=== PATIENT | female | born 2000 | race Caucasian/White ===

== ENCOUNTER 2022-06-12 02:30 | Emergency (ER) | payer SELFPAY ==
[2022-06-12 02:31] VITALS: BP 140/96; PULSE 116; RESP 16; TEMP 36.3; O2SAT 99; BMI 24.4
--- NOTE | 2022-06-12 02:36 | EDS_ITS ---
HPI History of Present Illness Chief Complaint: Suicidal Narrative Narrative: 21-year-old female here for suicidal ideation. Patient states she is tired of living a mundane life. She further states she has been thinking about it since 14 in reference to suicide. Patient notes she is drink alcohol tonight. No she is a plan to slit her wrist. Patient further states she was drinking tonight felt suicidal prior to drinking. States as she was drinking she felt more suicidal. States her ex-boyfriend called police to get her evaluated. Per police patient was found locked in her bathroom razor blades next to her. Police state patient endorsed suicidal ideations with a plan to kill herself by using razor blades. [facility] Home Medications NK 02/19/17 [History Last Taken Unknown] Allergy/AdvReac Type Severity Reaction Status Date / Time No Known Allergies Allergy Verified 06/12/22 02:39 Social History Smoking Status: Never smoker ROS ROS ED ROS Narrative Constitutional: Denies fever HEENT: Denies sore throat Neck: Denies neck pain Cardiovascular: Denies chest pain, syncope Respiratory: Denies shortness of breath GI: Denies nausea vomiting or abdominal pain : Denies changes in urinary habits Musculoskeletal: Denies muscle or joint pain Neurologic: Denies numbness weakness or loss of sensation Skin denies rash Psych: Endorses SI, denies auditory, visual hallucinations, denies homicidal ideation EXAM Physical Exam Narrative Exam Narrative: Nursing triage notes reviewed, Vital signs reviewed Constitutional: please see mdm HENT: MMM Eyes: Pupils equal round and reactive to light, Extraocular muscles intact Neck: No stridor, no JVD, full neck ROM Lungs: Clear to auscultation, No wheezing or rales. No increased work of breathing, no conversational dyspnea, no accessory muscle use, no nasal flaring. No respiratory distress noted Heart: Regular rate and rhythm, No murmurs, No rubs and No gallops, 2+ distal pulses (radial, femoral, posterior tibial) in all extremities Abdomen: Soft, there is no tenderness, rigidity, rebound or guarding, no obvious peritoneal signs, no palpable pulsatile abdominal masses, no auscultated abdominal bruit : No CVAT Extremities: No edema Neuro: No focal neurological deficits, cranial nerves II through XII intact, 5/5 strength in all extremities. Intact sensation to light touch in all extremities, 2+ reflexes bilateral patella dens. Normal gait. No ataxia. Skin: No rash or lesions noted Psych: Goal-directed thought process, intact insight, not responding to internal stimuli Const Vital Signs: 06/12/22 02:31 06/12/22 05:33 06/12/22 06:46 Temperature 97.4 F L Temperature Source Temporal Pulse Rate 116 H 68 99 Respiratory Rate 16 15 16 Blood Pressure 140/96 H 134/71 H 113/69 Blood Pressure Mean 110 92 83 Pulse Ox 99 99 99 Oxygen Delivery Method Room Air Room Air Room Air MDM MDM MDM Narrative Medical decision making narrative: Chief Complaint: Suicidal ideation External records reviewed: Evaluated for suicidal ideation 2017. At that time she was evaluated by crisis and discharged in the care of her father with a diagnosis of oppositional defiant disorder MDM: Patient was initially tachycardic, hemodynamically stable, afebrile nontoxic-appearing. No physical exam findings. No physical complaints at this time. I considered the following differential diagnosis: SI, alcohol intoxication Given patient's report of wanting to end her life. Patient was pink slipped by police pink slipped the patient. She was institutionalized, closed and possessions removed. Obtained medical clearance labs including urine drug screen and serum alcohol as well as COVID and test. Initial EKG without evidence of arrhythmia or STEMI. Remainder of labs showed evidence of alcohol intoxication otherwise no life limiting etiologies could be identified. The patient was medically cleared pending clinical lab sobriety. We will obtain a repeat alcohol level approximately 5 hours after initial alcohol level was drawn approximately 9 AM in the morning. At this time the patient is still suicidal we will have our behavioral health colleagues evaluate the patient for appropriateness for psychiatric admission. Patient signed out to a.m. physician pending repeat alcohol level and reevaluation of her suicidality. Factors affecting care: History of suicidal ideation Social determinants of health: Alcohol ingestion History obtained from others: EMS, police Shared decision making: I will have a discussion with the patient and or visitors regarding risk/benefits of further testing or admission. They will be made aware of of the risk/benefits inherent in this decision they will be given the opportunity to voice understanding. Consults: Behavioral health Lab Data Attestation: I reviewed the patient's lab results. Lab results narrative: EKG with sinus tachycardia, normal axis, normal intervals, no STEMI CBC without leukocytosis, severe anemia, no thrombocytopenia. BMP without evidence of significant electrolyte abnormalities, no anion gap, no acute kidney injury. Urine drug screen negative Serum negative COVID-negative Serum alcohol 215 consistent with acute alcohol intoxication Labs: Laboratory Results - last 24 hr 06/12/22 06/12/22 06/12/22 02:45 03:30 03:30 WBC 4.8 RBC 4.26 Hgb 13.5 Hct 40.6 MCV 95.3 MCH 31.7 MCHC 33.3 RDW Std Deviation 43.1 RDW Coeff of Naren 12.3 Plt Count 263 MPV 10.3 Immature Gran % (Auto) 0.200 Neut % (Auto) 55.6 Lymph % (Auto) 34.4 [place] % (Auto) 7.5 Eos % (Auto) 1.7 Baso % (Auto) 0.6 Absolute Neuts (auto) 2.7 Absolute Lymphs (auto) 1.66 Nucleated RBC % 0 Sodium 143 Potassium 3.8 Chloride 111 H Carbon Dioxide 22.0 Anion Gap 10 BUN 8 Creatinine 0.87 Estim Creat Clear Calc 99.47 Est GFR (MDRD) Af Amer 105 Est GFR (MDRD) Non-Af 87 BUN/Creatinine Ratio 9.2 L Glucose 106 Calcium 9.3 Serum , Qual Urine Opiates Screen NEGATIVE Urine Methadone Screen NEGATIVE Ur Barbiturates Screen NEGATIVE Ur Phencyclidine Scrn NEGATIVE Ur Amphetamines Screen NEGATIVE MDMA (Ecstasy) Screen NEGATIVE U Benzodiazepines Scrn NEGATIVE Urine Cocaine Screen NEGATIVE U Cannabinoids Screen NEGATIVE Ur Drug Screen Comment Ethyl Alcohol 06/12/22 06/12/22 03:30 03:30 WBC RBC Hgb Hct MCV MCH MCHC RDW Std Deviation RDW Coeff of Naren Plt Count MPV Immature Gran % (Auto) Neut % (Auto) Lymph % (Auto) [place] % (Auto) Eos % (Auto) Baso % (Auto) Absolute Neuts (auto) Absolute Lymphs (auto) Nucleated RBC % Sodium Potassium Chloride Carbon Dioxide Anion Gap BUN Creatinine Estim Creat Clear Calc Est GFR (MDRD) Af Amer Est GFR (MDRD) Non-Af BUN/Creatinine Ratio Glucose Calcium Serum , Qual NEGATIVE Urine Opiates Screen Urine Methadone Screen Ur Barbiturates Screen Ur Phencyclidine Scrn Ur Amphetamines Screen MDMA (Ecstasy) Screen U Benzodiazepines Scrn Urine Cocaine Screen U Cannabinoids Screen Ur Drug Screen Comment Ethyl Alcohol 215.0 Discharge Plan Triage Chief Complaint: Suicidal ED Provider: Johan Edmonds Dx/Rx/DC Orders Clinical Impression: Suicide ideation, Alcohol intoxication Prescriptions: No Action NK Primary Care Provider: Care Physician,No Primary Referrals: Care Physician,No Primary [Primary Care Provider] -
[2022-06-12 03:41] LABS: Amphetamine Urine VISTA NEGATIVE (<1000 ng/mL); Barbiturate Urine VISTA NEGATIVE (< 200 ng/mL); Benzodiazepine Urine VISTA NEGATIVE (< 200 ng/mL); Cocaine Urine VISTA NEGATIVE (< 300 ng/mL); Ecstacy Urine VISTA NEGATIVE (< 500 ng/mL); Methadone Urine VISTA NEGATIVE (< 300 ng/mL); PCP Urine VISTA NEGATIVE (< 25 ng/mL); THC Urine VISTA NEGATIVE (< 50 ng/mL); Vista UDS pH Range 4
[2022-06-12 03:43] LABS: Absolute Lymphocyte Count 1.66 X10^3/uL (0.83-4.51); Absolute Neutrophil Count 2.7 X10^3/uL (2.0-7.7); Basophil# 0.03 X10^3/uL; Basophil% 0.6 % (0-1); Eosinophil# 0.08 X10^3/uL; Eosinophils% 1.7 % (0-5); Hematocrit 40.6 % (37-47); Hemoglobin 13.5 g/dL (12.0-15.0); Lymphocyte # 1.66 X10^3/ul (0.83-4.51); Lymphocyte % 34.4 % (19-41); Mean Corp Hgb Conc 33.3 g/dL (32-36); Mean Corpuscular Hgb 31.7 pg (27.0-32.0); Mean Corpuscular Volume 95.3 fL (81-99); Mean Platelet Vol. 10.3 fl (6.2-12.0); Monocyte# 0.36 X10^3/uL; Monocyte% 7.5 % (0-10); NRBC Flagged by Analyzer 0 % (0-5); Neutrophil # 2.69 X10^3/uL (2.7-7.7); Neutrophil % 55.6 % (47-70); Platelet Count 263 K/mm3 (150-450); RBC Distribution Width CV 12.3 % (11.6-14.6); RBC Distribution Width SD 43.1 fl (35.1-43.9); Red Blood Count 4.26 M/mm3 (4.2-5.4); White Blood Count 4.8 K/mm3 (4.4-11.0)
[2022-06-12 04:00] LABS: Anion Gap 10 (5-15); BUN 8 mg/dL (7-18); BUN/Creat Ratio 9.2 RATIO (10-20); Calcium,Total 9.3 mg/dL (8.5-10.1); Chloride 111 mmol/L (98-107); Creatinine, Serum 0.87 mg/dL (0.55-1.02); EST Glomerular Filtration Rate 87 mL/min (>60); Est Glom Filt Rate - Afr Amer 105 mL/min (>60); Estimated Creatinine Clearance 99.47 ml/min; Glucose 106 mg/dL (74-106); Potassium 3.8 mmol/L (3.5-5.1); Sodium Level 143 mmol/L (136-145)
[2022-06-12 04:28] LABS: Internal QC Validated? YES +Cl - CLEAR BKGD; Pregnancy, Serum, hCG Quali. NEGATIVE Negative
[2022-06-12 05:33] VITALS: BP 134/71; PULSE 68; RESP 15; O2SAT 99
[2022-06-12 06:46] VITALS: BP 113/69; PULSE 99; RESP 16; O2SAT 99
[2022-06-12 10:00] VITALS: BP 116/78; PULSE 72; RESP 16; O2SAT 98
--- NOTE | 2022-06-12 11:13 | NURSING ---
CALLED [facility] ANSWERING SERVICE ABOUT PATIENT
--- NOTE | 2022-06-12 11:16 | NURSING ---
FAXED CHART TO CRISIS
--- NOTE | 2022-06-12 11:42 | NURSING ---
PRICILA JEAN, CALLED BACK. SHE IS WAITING ON THE FAX TO COME THROUGH
[2022-06-12 13:10] VITALS: PULSE 72; RESP 16; O2SAT 99
--- NOTE | 2022-06-12 13:16 | NURSING ---
IRINA, [facility], CALLED. SHE IS ON HER WAY OVER TO SEE PATIENT
== END 2022-06-12 15:33 | disposition home or self-care (01) ==
PROVIDERS: Emergency Provider Emergency Medicine; Visit Provider Emergency Medicine
DX: R45.851 Suicidal ideations (principal); F10.129 Alcohol abuse with intoxication, unspecified
CPT/HCPCS: 36415; 80048; 80307; 82077; 84703; 85025; 87811; 93005; 99285; A4216

== ENCOUNTER 2024-04-24 10:18 | Emergency (ER) | payer OTHER, SELFPAY ==
[2024-04-24 10:19] VITALS: BP 148/97; PULSE 96; RESP 15; TEMP 36.8; O2SAT 100
--- NOTE | 2024-04-24 11:18 | EDS_ITS ---
HPI History of Present Illness Chief Complaint: Laceration Narrative Narrative: Chief complaint and HPI: Left middle finger injury/laceration. 23-year-old female was injured at work when a metal crushed/lacerated her left middle finger. Her nail was ripped off. Has a nail bed injury. Not up-to-date on tetanus. Denies blood thinners. Denies numbness or tingling. Denies injury elsewhere. Review of systems: See HPI Medications: As listed on the chart Allergies: As listed on the chart PFSH: Per chart Vital signs: As listed on the chart. Reviewed. Physical exam: Gen: A&O x3, NAD Head: Normocephalic, atraumatic Eyes: No sclera icterus, conjunctiva clear ENT: Moist mucous membranes CV: Regular rate Resp: Nonlabored respiration Musc: Full range of motion of the left middle finger although tender to palpation distally, nail is removed with obvious nailbed injury, minimal active bleeding, sensation intact, radial/ulnar pulse +2, good capillary refill, rest of the finger, hand, wrist nontender to palpation Skin: Warm, dry Neuro: Alert, oriented, grossly intact, sensation intact Psych: Cooperative, appropriate mood and affect [facility] Home Medications ?Medication ?Instructions ?Recorded ?Last Taken ?Type cefadroxil 500 mg capsule 500 mg PO BID 7 days #14 cap s 04/24/24 Unknown Rx oxycodone-acetaminophen 5 mg-325 1 tab PO Q6H 3 days # 12 tabs 04/24/24 Unknown Rx mg tablet (Percocet) Allergy/AdvReac Type Severity Reaction Status Date / Time No Known Allergies Allergy Verified 04/24/24 10:22 Social History Smoking Status: Never smoker EXAM Physical Exam Const Vital Signs: 04/24/24 10:19 04/24/24 12:19 Temperature 98.2 F Temperature Source Temporal Pulse Rate 96 101 H Respiratory Rate 15 14 Blood Pressure 148/97 H 139/84 H Blood Pressure Mean 114 102 Pulse Ox 100 100 Oxygen Delivery Method Room Air Room Air MDM MDM MDM Narrative Medical decision making narrative: 23-year-old female was injured at work when a metal crushed/lacerated her left middle finger. Her nail was ripped off. Has a nail bed injury. Differential diagnosis includes but is not limited to fracture, contusion, nail bed injury. [place] ordered for pain. Tetanus updated. X-ray ordered. Injury will need repaired. X-ray of the finger was personally reviewed and interpreted by me, ED physician. Patient has comminuted fractures of third distal finger. With nailbed injury, this is an open fracture. Patient given her first dose of Duricef here in the emergency department. She will be discharged home on a 7- day course twice daily. Nailbed injury and laceration was repaired. Patient tolerated this well. Patient's finger was placed in splint. She is educated on splint and suture care. Follow-up with Worker's compensation and Dr. Monroy for the fracture. Patient is to be nonweightbearing to the left hand until cleared. Return precautions explained. Worker's Comp. paperwork was not filled out as patient had already filled this out by another provider. Nailbed Repair Indication: Nail avulsion and nailbed injury to the left middle finger Consent: Risks, benefits, and alternatives discussed with patient and consent obtained Procedure: The skin surrounding the wound was cleaned, irrigated, and sterile draped. Anesthesia was obtained using a digital block with 1% lidocaine without epinephrine. Nail had already been removed/avulsed from injury. The wound was thoroughly irrigated with iodine and sterile saline. The nail bed injury was repaired using 8 sutures using 4-0 Vicryl in an interrupted fashion. The nailbed was macerated making it difficult to repair. The nail was was not present and foil/replacement was not able to be sutured into where the nail should be secondary to the injury being extensive. Instead, Xeroform gauze was applied over the nailbed. The 2.5 cm laceration was repaired with 7 sutures using 4-0 Ethilon. Dressing and finger splint was applied. Patient tolerated procedure well without any complications. The neurovascular exam was normal before and after procedure. Blood loss minimal. Patient tolerated the procedure well. Impression: 1. Open comminuted fractures of the left third distal finger, status post finger splint 2. Nailbed injury, status post repaired 3. 2.5 cm left third distal finger laceration, status post repaired 4. Injury at work Radiography Diagnostic Testing: Clinical Impression(s) from Imaging Studies Finger X-Ray 04/24/24 11:20 IMPRESSION: 1. Nondisplaced and minimally displaced comminuted fractures of the 3rd distal phalanx with involvement of the shaft and tuft. Suspect overlying laceration. 2. Additional description as above. Reading Location: [id number] Discharge Plan Triage Chief Complaint: Laceration ED Provider: Jace Cottrell Dx/Rx/DC Orders Clinical Impression: Open fracture of finger, Nailbed injury, Laceration Instructions: ED Fracture, Finger, Open, ED Laceration, All Closures Prescriptions: New oxycodone-acetaminophen [Percocet] 5-325 mg tablet 1 tab PO Q6H 3 Days Qty: 12 0RF cefadroxil 500 mg capsule 500 mg PO BID 7 Days Qty: 14 0RF Primary Care Provider: Care Physician,No Primary Referrals: Corporate,Care [Group of Physicians] - 3-5 Days Deondre Edwards MD [Med Staff - Active Staff] - 3-5 Days Care Physician,No Primary [Primary Care Provider] - Activity Restrictions/Additional Instructions: Follow up with Worker's Comp. Black sutures need to be removed in 7 days. Wear splint at all times. Splint cannot get wet. Follow-up with Dr. Edwards for your finger fracture. Take all of your antibiotics. Ibuprofen as needed for pain. Narcotics for severe pain. Do not drive or operate heavy machinery while taking narcotics. Nonweightbearing to the left hand. Print Language: Armenian Disposition Disposition: Home, Self Care Discharge Date/Time: 04/24/24 13:53
--- NOTE | 2024-04-24 11:20 | RAD_ITS ---
PROCEDURE: FINGER(S) MIN 2 VIEWS REASON FOR EXAM: FINGER INJURY TECHNIQUE: AP, lateral, and oblique views of the left 3rd finger were obtained. COMPARISON: None FINDINGS: Fracture/dislocation: Nondisplaced and minimally displaced comminuted fractures of the distal phalanx including the shaft and tuft. Extension into the proximal shaft closely approximates the base, without definite extension into the DIP joint. Joint space(s): Preserved. Soft tissues: Soft tissue irregularity and suspected laceration overlying the tuft. Mild soft tissue swelling. Foreign bodies: None visible. Bone mineralization: Unremarkable. RAD/Finger(s) Min 2 Views IMPRESSION: 1. Nondisplaced and minimally displaced comminuted fractures of the 3rd distal phalanx with involvement of the shaft and tuft. Suspect overlying laceration. 2. Additional description as above. Reading Location: [id number]
[2024-04-24] MEDS: HYDROcodone Bitartrate/Apap 5/325 Tablet PO (11:32)
[2024-04-24] MEDS: Lidocaine 1% (20 ml mdv) 20 ML Vial INFILT (11:32)
[2024-04-24 12:19] VITALS: BP 139/84; PULSE 101; RESP 14; O2SAT 100
[2024-04-24] MEDS: Cefadroxil 500 MG CAPSULE PO (13:31)
[2024-04-24] MEDS: Diphth,Pertuss(Acell),Tet Vac 0.5 ML Vial IM (13:31)
--- NOTE | 2024-04-24 14:20 | CM.ED ---
Social Work Reason for visit: No PCP SW introduced self and reason for visit. Patient verified that he does not currently have a PCP, [facility] provider list given. No further needs at this time. Dayanara Ogden, TEMPORARY OFFICE ASSISTANT, HOSPICE COORDINATOR
== END 2024-04-24 13:53 | disposition home or self-care (01) ==
PROVIDERS: Emergency Provider Surgery; Visit Provider Surgery
DX: S62.663B Nondisplaced fracture of distal phalanx of left middle finger, initial encounter for open fracture (principal); X58.XXXA Exposure to other specified factors, initial encounter; Y99.0 Civilian activity done for income or pay; Y92.89 Other specified places as the place of occurrence of the external cause; Z23 Encounter for immunization
CPT/HCPCS: 12001; 11750; 73140; 90471; 90715; 99285